=== PATIENT | female | born 1950 | race Caucasian/White ===

== ENCOUNTER 2017-04-19 07:37 | Day surgery (SDC) | payer OTHER, BC ==
[2017-04-19] MEDS ORDERED: PROPOFOL 20 ML ONE ×2 (08:40)
[2017-04-19 08:41] VITALS: BMI 18.6
[2017-04-19 09:15] VITALS: TEMP 97.6
[2017-04-19 09:40] VITALS: PULSE 50
[2017-04-19 10:41] VITALS: BP 100/50
--- NOTE | 2017-04-20 12:43 | PATH ---
Surgical Pathology Report Patient Name: LETTY ALEXANDER [facility]. Rec. #: [id number] /Age/Gender: 1950 (Age: 66) / F Account: [id number] Location: U-ENDOSCOPY Taken: 04/19/2017 Received: 04/19/2017 Reported: 04/20/2017 Physicians: Jun Parra M.D. Specimen(s) Received A: BX DUODENUM B: BX STOMACH C: BX DISTAL ESOPHAGUS Clinical History Epigastric pain, GERD Erosive gastritis, gastritis, rule out atrophy Final Diagnosis A. DUODENUM, BIOPSY: DUODENAL MUCOSA WITH NO PATHOLOGIC CHANGES. NO HISTOLOGIC EVIDENCE OF GLUTEN SENSITIVE ENTEROPATHY (CELIAC SPRUE) IDENTIFIED. B. STOMACH, BIOPSY: GASTRIC FUNDIC MUCOSA WITH NO PATHOLOGIC CHANGES. IMMUNOSTAIN FOR H. PYLORI IS NEGATIVE. C. DISTAL ESOPHAGUS, BIOPSY: SQUAMOUS EPITHELIUM WITH PAPILLOMATOSIS SUGGESTIVE OF REFLUX ESOPHAGITIS. NO INTESTINAL METAPLASIA IDENTIFIED (NO CHAMBERLAIN'S IDENTIFIED). Electronically Signed Alexander Kay M.D. Gross Description A. Received in formalin, labeled "biopsy duodenum" are 6 saucedo, irregular portions of soft tissue ranging from 0.1-0.4 cm. in greatest dimension. The specimens are submitted in toto in one cassette. B. Received in formalin, labeled "biopsy stomach" are 2 saucedo, irregular portions of soft tissue averaging 0.4 cm. in greatest dimension. The specimens are submitted in toto in one cassette. C. Received in formalin, labeled "distal esophagus" is a saucedo, irregular portion of soft tissue measuring 0.4 cm. in greatest dimension. The specimen is submitted in toto in one cassette. 04/19/2017 saudi04/19/2017
== END 2017-04-19 10:50 | disposition home or self-care (01) ==
LOC: JASU-ENDO 07:37
PROVIDERS: ATTEND Internal Medicine Gastroenterology
PROC: 0DB68ZX Excision of Stomach, Via Natural or Artificial Opening Endoscopic, Diagnostic (ICD-10-PCS; 2017-04-19)
PROC: 0DB58ZX Excision of Esophagus, Via Natural or Artificial Opening Endoscopic, Diagnostic (ICD-10-PCS; 2017-04-19)
PROC: 0DB98ZX Excision of Duodenum, Via Natural or Artificial Opening Endoscopic, Diagnostic (ICD-10-PCS; principal; 2017-04-19 08:30)
DX: K25.9 Gastric ulcer, unspecified as acute or chronic, without hemorrhage or perforation (principal); K29.70 Gastritis, unspecified, without bleeding
CPT/HCPCS: 88305-TC; 88342-TC

== ENCOUNTER 2019-05-18 07:06 | Day surgery (SDC) | payer OTHER, BC ==
[2019-05-17 15:39] VITALS: BMI 19.1
[2019-05-18] MEDS ORDERED: PROPOFOL 20 ML ONE (07:55)
[2019-05-18] MEDS ORDERED: SUCCINYLCHOLINE CHLORIDE 200 MG/10 ML SYRINGE ONE (07:55)
[2019-05-18] MEDS ORDERED: MIDAZOLAM HCL 2 MG/2 ML SINGLE DOSE VIAL ONE ×2 (07:56→09:31)
[2019-05-18] MEDS ORDERED: LIDOCAINE HCL 1%, 10 MG/ML (20ML VIAL) ONE (07:59)
[2019-05-18] MEDS ORDERED: BUPIVACAINE HCL/PF 0.5% (5 MG/ML) 30 ML VIAL IJ ONE ×3 (08:00→09:43)
--- NOTE | 2019-05-18 08:31 | HP ---
Satellite H - Chief Complaint Chief Complaint: right wrist mass - Past Medical History Allergies/Adverse Reactions: Allergies Allergy/AdvReac Type Severity Reaction Status Date / Time Fish Containing Products Allergy Verified 05/17/19 15:39 shrimp Allergy Verified 05/17/19 15:39 - Current Medications Current Medications: Home Medications Medication Instructions Recorded Aspirin Coated [Ecotrin -] 81 mg PO DAILY 06/06/12 Metoprolol Succinate [Toprol XL -] 25 mg PO HS 06/06/12 Rosuvastatin Calcium [Crestor] 5 mg PO HS 06/06/12 metFORMIN XR [Glucophage Xr -] 500 mg PO HS 06/06/12 Alprazolam [Xanax] 0.5 mg PO HS 05/17/19 Escitalopram Oxalate [Lexapro -] 10 mg PO DAILY 05/17/19 Pantoprazole Sodium [Protonix] 40 mg PO DAILY 05/17/19 Hydrocodone/Acetaminophen 1 each PO Q6H #15 tablet MDD 4 05/18/19 [Hydrocodone-Acetamin 5-325 mg] Satellite Physical Exam - Physical Examination Vital Signs: Vital Signs Period Temp Pulse Resp BP Sys/Cole Pulse Ox Last 24 Hr 97.7 F-97.7 F 55-55 20-20 124-124/68-68 100 General Appearance: Well Nourished, Well Developed, Alert & Oriented x3 ENT: Clear Lung: Normal air movement Heart: Regular rate & rhythm Extremities: Other (right wrist- + mass, + ttp, nvi) Neurological: Intact, Alert, Oriented Satellite Impression/Plan - Impression/Plan Impression: right wrist ganglion cyst Operative Procedure: right wrist ganglion cyst excision Date to be Performed: 05/18/19
[2019-05-18] MEDS ORDERED: LIDOCAINE HCL/PF 2% SDV 5ML VIAL ONE (08:49)
[2019-05-18] MEDS ORDERED: KETOROLAC TROMETHAMINE 30 MG/1 ML VIAL ONE (08:49)
[2019-05-18] MEDS ORDERED: ACETAMINOPHEN 325 MG TABLET (FP) PO PRN (08:54)
[2019-05-18] MEDS ORDERED: ONDANSETRON 4 MG/2 ML VIAL IVPUSH PRN (08:54)
[2019-05-18] MEDS ORDERED: LACTATED RINGERS SOLUTION 1,000 ML IV SCH (09:00)
[2019-05-18] MEDS ORDERED: ceFAZolin SODIUM 1 GM VIAL IVPB ONE ×2 (09:15→09:42)
[2019-05-18] MEDS ORDERED: ceFAZolin SODIUM 1 GM VIAL ONE (09:28)
[2019-05-18] MEDS ORDERED: LIDOCAINE HCL 1%, 10 MG/ML (20ML VIAL) NR ONE ×2 (09:43)
--- NOTE | 2019-05-18 10:29 | OP ---
Operative Note - Note: Operative Date: 05/18/19 Pre-Operative Diagnosis: right wrist mass, likely ganglion cyst Operation: excision mass/ganglion cyst right wrist Post-Operative Diagnosis: Same as Pre-op Surgeon: Sriram Lorenzo Anesthesiologist/DISPATCHER MAINTENANCE SERVICE: Ami Christie Anesthesia: Local, MAC Specimens Removed: mass, right wrist Estimated Blood Loss (mls): 0 Drains, Volume Out (mls): 0 Blood Volume Replaced (mls): 0 Fluid Volume Replaced (mls): 500 Operative Report Dictated: Yes
[2019-05-18 11:16] VITALS: BP 116/62; PULSE 54; TEMP 98.1
--- NOTE | 2019-05-18 11:24 | OP ---
DATE OF OPERATION: 05/18/2019 PREOPERATIVE DIAGNOSIS: Mass volar radial aspect, right wrist likely ganglion cyst. POSTOPERATIVE DIAGNOSIS: Mass volar radial aspect, right wrist likely ganglion cyst. PROCEDURE: Excision mass/ganglion cyst, right wrist. SPECIMEN: Yes, mass, right wrist. SURGEON: Sriram Lorenzo MD ROOFING SUBCONTRACTOR: None. ANESTHESIA: MAC anesthesia with local injection of 15 mL 0.5% Marcaine, 1% lidocaine mix. ANESTHESIOLOGIST: Ami Christie MD DRAINS: None. COMPLICATIONS: None. BLOOD LOSS: None. BLOOD GIVEN: None. FLUID REPLACEMENT: 500 mL Plasma-Lyte. DESCRIPTION OF PROCEDURE: This patient is a 68-year-old female with preoperative diagnosis of a mass, likely ganglion cyst on the volar radial aspect of the right arm. After understanding the potential risks, complications, alternatives, and benefits to surgery versus nonsurgical treatment, the patient elected to undergo this procedure. She understands that even with surgical excision there is a 1% chance of recurrence and temporary or permanent paresthesias. The patient was brought to the operating room. Peripheral IV place. IV sedation given, 1 g of IV Ancef was given. The entire case was done under 3.0 loupe magnification. MAC anesthesia was induced. Tourniquet was applied to the right upper arm with ample padding throughout. The right upper extremity is then prepped and draped in sterile fashion, elevated, exsanguinated with an Esmarch bandage and the tourniquet inflated to 250 mmHg. A longitudinal incision was marked out over this multiloculated mass, likely ganglion cyst. Subcutaneous hemostasis was achieved with a bipolar cautery. Very careful dissection was done with the blunt tipped Littler scissors down to the extensor retinaculum of the 1st volar wrist compartment. Small Weitlaner retractors were placed into the wound for retraction of subcutaneous crossing neurovascular structures. I then used a fresh No. 15 scalpel blade to make a small window within the volar radial wrist retinaculum. Immediate ganglion cyst fluid came out through this small window, and I opened the window a little bit larger, and I was able to find the abnormal tissue. I did careful circumferential dissection using the Littler scissors around this clearly abnormal mass. I was careful to tease off and preserve all crossing neurovascular structures. There were no nerves in this area. There were small arterial branches. One needed to be cauterized, and I put a 2-0 silk suture ligature on it and cauterized the tip, but overall, they were small. I found the stalk, dissected circumferentially around it, and decapitated the stalk at its base. It was passed off the field as specimen. The area was copiously irrigated and washed out. I then cauterized the base where it went into the volar radial wrist capsule. The area was irrigated and washed out again. I could not see or feel any abnormal tissue. Closure was done with 4-0 undyed Vicryl in the deep dermal layer, and final skin reapproximation was done with a running subcuticular 4-0 Biosyn stitch. It was then washed and dried, covered with Steri-Strips, 4 x 4's, fluffs between the fingers, Webril, and Coban. Tourniquet was taken down after a total tourniquet time of about 25 minutes. There were no complications during the case. The patient tolerated the procedure quite well and was brought to the ambulatory recovery room in stable condition. Law [id number]
--- NOTE | 2019-05-19 18:22 | PATH ---
Surgical Pathology Report Patient Name: LETTY ALEXANDER [facility]. Rec. #: [id number] /Age/Gender: 1950 (Age: 68) / F Account: [id number] Location: U SURGICAL Taken: 05/18/2019 Received: 05/18/2019 Reported: 05/19/2019 Physicians: Sriram Lorenzo M.D. Specimen(s) Received WRIST MASS, RIGHT Clinical History Right wrist ganglion cyst Final Diagnosis WRIST MASS, RIGHT, REMOVAL OF GANGLION CYST: CONSISTENT WITH GANGLION CYST. Electronically Signed Gosia Franco M.D. Gross Description Received in formalin labeled "right wrist mass," are 2 saucedo-yellow soft tissue fragments measuring 0.8 x 0.4 x 0.1 cm and 0.9 x 0.7 x 0.2 cm. The specimens are submitted in toto in one cassette. DL/05/18/2019 saudi/05/18/2019
== END 2019-05-18 13:24 | disposition home or self-care (01) ==
LOC: JASU-SURG 07:06
PROVIDERS: ATTEND Orthopaedic Surgery
PROC: 0LB50ZZ Excision of Right Lower Arm and Wrist Tendon, Open Approach (ICD-10-PCS; principal; 2019-05-18 09:00)
DX: M67.431 Ganglion, right wrist (principal)
CPT/HCPCS: 82962; 88304-TC; 94760

== ENCOUNTER 2020-01-31 10:01 | Day surgery (SDC) | payer OTHER, BC ==
[2020-01-25 09:24] VITALS: BMI 18.5
[2020-01-31 10:36] VITALS: TEMP 98.4
[2020-01-31] MEDS ORDERED: PROPOFOL 20 ML ONE ×4 (11:03)
[2020-01-31] MEDS ORDERED: GLYCOPYRROLATE 0.2 MG/1 ML VIAL ONE (11:31)
[2020-01-31 12:38] VITALS: BP 138/71; PULSE 72
--- NOTE | 2020-02-02 18:19 | PATH ---
Surgical Pathology Report Patient Name: LETTY ALEXANDER [place]. Rec. #: [id number] /Age/Gender: 1950 (Age: 69) / F Account: [id number] Location: [facility] Taken: 01/31/2020 Received: 01/31/2020 Reported: 02/02/2020 Physicians: Gosia Multani M.D. Specimen(s) Received A: SECOND PORTION DUODENUM B: GASTRIC ANTRUM Clinical History Bloating, dyspepsia Final Diagnosis A. SECOND PORTION OF DUODENUM, BIOPSY: DUODENAL MUCOSA WITH NO SIGNIFICANT PATHOLOGIC CHANGE. NO HISTOLOGIC EVIDENCE OF INTRAEPITHELIAL LYMPHOCYTOSIS. B. GASTRIC ANTRUM, BIOPSY: GASTRIC MUCOSA WITH CHRONIC GASTRITIS. IMMUNOSTAIN FOR H. PYLORI IS NEGATIVE NEGATIVE FOR INTESTINAL METAPLASIA. Electronically Signed Jessica Matthews M.D. Gross Description A. Received in formalin, labeled "biopsy second portion of duodenum" is a saucedo, irregular portion of soft tissue measuring 0.4 cm. in greatest dimension. The specimen is submitted in toto in one cassette. B. Received in formalin, labeled "biopsy gastric antrum" is a saucedo, irregular portion of soft tissue measuring 0.3 cm. in greatest dimension. The specimen is submitted in toto in one cassette. /02/01/2020 saudi02/01/2020
== END 2020-01-31 12:35 | disposition home or self-care (01) ==
LOC: FASU-ENDO 10:01
PROVIDERS: ATTEND Internal Medicine Gastroenterology
PROC: 0DB68ZX Excision of Stomach, Via Natural or Artificial Opening Endoscopic, Diagnostic (ICD-10-PCS; 2020-01-31)
PROC: 0DB98ZX Excision of Duodenum, Via Natural or Artificial Opening Endoscopic, Diagnostic (ICD-10-PCS; principal; 2020-01-31 11:34)
DX: K29.50 Unspecified chronic gastritis without bleeding (principal); R12 Heartburn
CPT/HCPCS: 82962; 88305-TC; 88342-TC